=== PATIENT | male | born 1965 | race Caucasian/White ===

== ENCOUNTER → 2016-10-18 | Outpatient (CLI) | payer BC ==
[2016-10-18 13:38] LABS: Basophils # (A) 0.1 k/uL (0-0.2); Basophils % (A) 1 %; CHCM 33.7; Eosinophils # (A) 0.2 k/uL (0-0.7); Eosinophils % (A) 3 %; HCT 46.8 % (39.0-53.0); HDW 2.59; HGB 15.5 gm/dL (13.0-17.5); Luc # (Auto) 0.12; Luc % (Auto) 2; Lymphocytes # (A) 1.7 k/uL (1.0-4.8); Lymphocytes % (A) 30 %; MCH 30.7 pg (25.0-35.0); MCHC 33.2 g/dL (31.0-37.0); MCV 92.5 fL (80.0-100.0); Mean Platelet Volume 8.9; Monocytes # (A) 0.3 k/uL (0-1.0); Monocytes % (A) 6 %; Neutrophils # (A) 3.3 k/uL (1.3-7.7); Neutrophils % (A) 58 %; RBC 5.06 m/uL (4.30-5.90); RDW 13.1 % (11.5-15.5); WBC 5.7 k/uL (3.8-10.6); WBC (Perox) 5.52
[2016-10-18 14:31] LABS: ALT 42 U/L (21-72); AST 27 U/L (17-59); Blood Urea Nitrogen 13 mg/dL (9-20); Non-African American GFR(MDRD) >60 (>60 ml/min/1.73 sqM)
--- NOTE | 2016-10-18 20:25 | XR ---
EXAMINATION TYPE: XR chest 2V DATE OF EXAM: 10/18/2016 1:04 PM COMPARISON: 10/16/2015 HISTORY: 51-year-old male psoriasis vulgaris TECHNIQUE: Frontal and lateral views FINDINGS: Low lung volumes accentuating heart size which is within normal limits. Aorta and pulmonary vasculatu re within normal limits. Mild interstitial prominence is unchanged and chronic. No consolidation or p leural effusion. IMPRESSION: Some low lung volumes and chronic changes, possible chronic bronchitis/asthma. No acute process seen.
== END | disposition home or self-care (01) ==
LOC: LABWHC1 12:28
PROVIDERS: ATTEND Physician Assistant Medical
DX: L40.0 Psoriasis vulgaris (principal)
CPT/HCPCS: 36415; 71020; 82565; 84450; 84460; 84520; 85025

== ENCOUNTER → 2017-08-03 | Outpatient (CLI) | payer BC ==
[2017-08-03 19:13] LABS: Basophils % (A) 1 %; Eosinophils # (A) 0.1 k/uL (0-0.7); Eosinophils % (A) 3 %; HCT 45.4 % (39.0-53.0); HGB 15.2 gm/dL (13.0-17.5); Lymphocytes # (A) 1.9 k/uL (1.0-4.8); Lymphocytes % (A) 37 %; MCH 30.3 pg (25.0-35.0); MCHC 33.5 g/dL (31.0-37.0); MCV 90.4 fL (80.0-100.0); Mean Platelet Volume 9.7; Monocytes # (A) 0.4 k/uL (0-1.0); Monocytes % (A) 8 %; Neutrophils # (A) 2.5 k/uL (1.3-7.7); Neutrophils % (A) 49 %; Platelet Count 109 k/uL (150-450); RBC 5.02 m/uL (4.30-5.90)
[2017-08-03 19:38] LABS: ALT 38 U/L (21-72); AST 23 U/L (17-59); Albumin 4.2 g/dL (3.5-5.0); Alkaline Phosphatase 64 U/L (38-126); Bilirubin, Delta 0.2 mg/dL (0.0-0.2); Bilirubin,Unconjugated 0.7 mg/dL (0.0-1.1); Total Bilirubin 0.9 mg/dL (0.2-1.3)
== END | disposition home or self-care (01) ==
LOC: LABMAIN 18:34
PROVIDERS: ATTEND Nurse Practitioner Family
DX: L40.0 Psoriasis vulgaris (principal)
CPT/HCPCS: 36415; 80076; 82565; 85025; 86480

== ENCOUNTER → 2018-08-06 | Outpatient (CLI) | payer BC ==
[2018-08-06 17:22] LABS: Basophils % (A) 1 %; Eosinophils # (A) 0.1 k/uL (0-0.7); Eosinophils % (A) 2 %; HCT 46.5 % (39.0-53.0); HGB 15.8 gm/dL (13.0-17.5); Lymphocytes # (A) 1.7 k/uL (1.0-4.8); Lymphocytes % (A) 28 %; MCH 30.5 pg (25.0-35.0); MCV 89.7 fL (80.0-100.0); Mean Platelet Volume 8.7; Monocytes # (A) 0.3 k/uL (0-1.0); Monocytes % (A) 5 %; Neutrophils # (A) 3.8 k/uL (1.3-7.7); Neutrophils % (A) 62 %; Platelet Count 130 k/uL (150-450); RBC 5.18 m/uL (4.30-5.90); RDW 12.8 % (11.5-15.5)
== END | disposition home or self-care (01) ==
LOC: LABWHC1 16:53
PROVIDERS: ATTEND Physician Assistant Medical
DX: L40.0 Psoriasis vulgaris (principal)
CPT/HCPCS: 36415; 82565; 84450; 84460; 85025; 86480

== ENCOUNTER → 2021-04-09 | Outpatient (CLI) | payer BC ==
[2021-04-09 23:20] LABS: Basophils # (A) 0.05 X 10*3/uL (0.00-0.10); Basophils % (A) 0.9 %; Eosinophils # (A) 0.09 X 10*3/uL (0.04-0.35); Eosinophils % (A) 1.7 %; HCT 48.4 % (39.6-50.0); HGB 16.2 g/dL (13.0-17.0); Lymphocytes # (A) 1.67 X 10*3/uL (0.90-5.00); Lymphocytes % (A) 31.2 %; MCH 30.6 pg (27.0-32.0); MCHC 33.5 g/dL (32.0-37.0); MCV 91.3 fL (80.0-97.0); Mean Platelet Volume 13.2 fL (9.5-12.2); Monocytes # (A) 0.26 X 10*3/uL (0.20-1.00); Monocytes % (A) 4.9 %; Neutrophils # (A) 3.28 X 10*3/uL (1.80-7.70); Neutrophils % (A) 61.1 %; Platelet Count 131 X 10*3/uL (140-440); RDW 12.3 % (11.5-14.5); WBC 5.36 X 10*3/uL (4.50-10.00)
[2021-04-10 05:56] LABS: African American GFR (CKD) 98.5 (60.0-200.0); Non-African American GFR(CKD) 84.9 (60.0-200.0)
== END | disposition home or self-care (01) ==
LOC: LABWHC1 13:12
PROVIDERS: ATTEND Dermatology MOHS-Micrographic Surgery
DX: L40.0 Psoriasis vulgaris (principal)
CPT/HCPCS: 36415; 82565; 84450; 84460; 85025; 86480

== ENCOUNTER 2021-05-23 07:26 | Day surgery (SDC) | payer BC ==
[2021-05-20 12:52] VITALS: BMI 36.9
--- NOTE | 2021-05-23 06:32 | P.GSHP ---
History of Present Illness H&P Date: 05/23/21 CHIEF COMPLAINT: Colon screen HISTORY OF PRESENT ILLNESS: The patient is a 56-year-old male who presents for colon screen. Lower endoscopy was offered for further evaluation and management. PAST MEDICAL HISTORY: Please see list. PAST SURGICAL HISTORY: Please see list. MEDICATIONS: Please see list. ALLERGIES: Please see list. SOCIAL HISTORY: No illicit drug use FAMILY HISTORY: No reports of Crohn disease or ulcerative colitis. REVIEW OF ORGAN SYSTEMS: CONSTITUTIONAL: No reports of fevers or chills. PHYSICAL EXAM: VITAL SIGNS: Stable GENERAL: Well-developed pleasant in no acute distress. HEENT: No scleral icterus. Extraocular movements grossly intact. Moist buccal mucosa. NECK: Supple without lymphadenopathy. CHEST: Unlabored respirations. Equal bilateral excursions. CARDIOVASCULAR: Regular rate and rhythm. Distal 2+ pulses. ABDOMEN: Soft, nontender, nondistended. MUSCULOSKELETAL: No clubbing, cyanosis, or edema. ASSESSMENT: 1. Colon screen. PLAN: 1. Recommend proceeding with a lower endoscopy Past Medical History Past Medical History: Cancer Additional Past Medical History / Comment(s): LOW HEART RATE AT TIMES , MELENOMA, PSORIATIC ARTHRITIS, History of Any Multi-Drug Resistant Organisms: None Reported Additional Past Surgical History / Comment(s): RIGHT LEG FOR RUPTURED TENDON IN QUAD, BIOPSY OF RIGHT RING FINGER KNUKLE, SKIN LESION REMOVED WITH LYMPH NODE BIOPSY Past Anesthesia/Blood Transfusion Reactions: No Reported Reaction Smoking Status: Never smoker - Past Family History Mother Family Medical History: Cancer Medications and Allergies Home Medications Medication Instructions Recorded Confirmed Type Ustekinumab [Stelara] 90 mg INJ DIRECTED 05/20/21 05/20/21 History Allergies Allergy/AdvReac Type Severity Reaction Status Date / Time erythromycin base Allergy Rash/Hives Verified 05/20/21 12:32
[~2021-05-23 07:26] MED LIST: LACTATED RINGERS 1,000 ML IV SCH
[2021-05-23] MEDS ORDERED: PROPOFOL 10 MG/ML 20 ML VIAL IV ONE (07:48)
[2021-05-23] MEDS ORDERED: LIDOCAINE 1% INJ 10MG/ML (20 ML MDV) ONE (07:48)
[2021-05-23 07:57] VITALS: RESP 16; TEMP 97.3
[2021-05-23] MEDS ORDERED: LIDOCAINE 1% (10MG/ML) FOR IV START INTRADERMA ONE (08:03)
--- NOTE | 2021-05-23 09:17 | P.PCN ---
Date of Procedure: 05/23/21 Description of Procedure: PREOPERATIVE DIAGNOSIS: Colonoscopy screening POSTOPERATIVE DIAGNOSIS: Colonoscopy screening Tubular adenoma sigmoid colon OPERATION: Colonoscopy to the ileocecal valve and appendiceal orifice, cecum Colonoscopy with hot snare polypectomy SURGEON: Kathi Hernadez MD. ANESTHESIA: MAC. INDICATIONS: The patient is an 56-year-old male who presents for his first colonoscopic screening. Benefits and risks were described and informed consent was obtained. DESCRIPTION OF PROCEDURE: The patient had undergone Sutab prep. The patient had been brought into the operating room and laid in the left lateral decubitus position. After adequate intravenous sedation, the rectum was examined with 2% lidocaine jelly. The prostate was unremarkable. No external hemorrhoids were encountered. The rectal tone was within normal limits. No lesions were palpated in the rectal vault. An Olympus colonoscope was advanced until the cecum, ileocecal valve and appendiceal orifice were clearly viewed. The prep was excellent. No sigmoid diverticulosis was encountered. Colonic polyps were found and removed. No evidence of focal colitis was found. Retroflexion of the scope demonstrated grade 1 internal hemorrhoids without active bleeding or inflammation. The colon was desufflated. The patient had tolerated the procedure well. Withdrawal time was over 6 minutes. FINDINGS: Aronchick preparation quality scale 1 (1-5) Internal hemorrhoids, grade 1 No external hemorrhoids. No arteriovenous malformations. Sigmoid diverticulosis Removal of 1 polyps: - Snare polypectomy 25 cm from the anal verge, 5 mm tubulovillous adenoma polyp. No focal colitis. RECOMMENDATIONS: Repeat colonoscopy in 2025 Plan - Discharge Summary Discharge Rx Participant: No New Discharge Prescriptions: Continue Ustekinumab [Stelara] 90 mg INJ DIRECTED Discharge Medication List Ustekinumab [Stelara] 90 mg INJ DIRECTED 05/20/21 [History] Follow up Appointment(s)/Referral(s): Kathi Hernadez MD [STAFF PHYSICIAN] - As Needed Patient Instructions/Handouts: Colorectal Polyps (IP) Activity/Diet/Wound Care/Special Instructions: Repeat colonoscopy in 5 years2025 Discharge Disposition: HOME SELF-CARE
[2021-05-23 09:30] VITALS: BP 165/76; PULSE 52
== END 2021-05-23 09:51 | disposition home or self-care (01) ==
LOC: ORWHC2ENDO 07:26
PROVIDERS: ATTEND Surgery Plastic and Reconstructive Surgery
DX: Z12.11 Encounter for screening for malignant neoplasm of colon (principal); K63.5 Polyp of colon; L40.50 Arthropathic psoriasis, unspecified; Z85.820 Personal history of malignant melanoma of skin; Z79.899 Other long term (current) drug therapy; Z88.1 Allergy status to other antibiotic agents
CPT/HCPCS: 88305; 45385; J2001; J2704

== ENCOUNTER → 2021-06-19 | Outpatient (CLI) | payer BC ==
[~2021-06-19] MED LIST changes: +BAMLANIVIMAB (EUA) 700 MG, ETESEVIMAB (EUA) 1,400 MG in SODIUM CHLORIDE 0.9% 100 ML IVPB NR; -LACTATED RINGERS 1,000 ML IV SCH; +SODIUM CHLORIDE 0.9% 50 ML IVPB NR; +SODIUM CHLORIDE 0.9% 500 ML 500 ML in EMPTY BAG 1 BAG IV PRN
[2021-06-19 08:42] VITALS: RESP 16; TEMP 98
[2021-06-19 10:05] VITALS: BP 141/69; PULSE 41
== END ==
LOC: PROCWHC3 07:56
PROVIDERS: ATTEND Family Medicine
DX: U07.1 COVID-19 (principal); E66.9 Obesity, unspecified; Z68.37 Body mass index [BMI] 37.0-37.9, adult; Z88.1 Allergy status to other antibiotic agents
CPT/HCPCS: 96360; J3490; M0245

== ENCOUNTER → 2022-02-04 | Outpatient (CLI) | payer BC ==
--- NOTE | 2022-02-04 14:49 | NM ---
EXAMINATION TYPE: NM bone scan whole body DATE OF EXAM: 02/04/2022 COMPARISON: NONE HISTORY: C61 Prostate ca Delayed whole-body scanning was performed following the injection of 23.5 mCi Tc 99m MDP. Images acq uired 5.5 hours post injection. FINDINGS: There is no evidence for intense radiotracer accumulation at this time to suggest metastatic disease. There is degenerative uptake about the shoulders, sternoclavicular joints, mid to lower thoracic spi ne, bilateral knees, bilateral ankles, mid feet and right great toe. IMPRESSION: No scintigraphic evidence to suggest metastatic disease at this time.
--- NOTE | 2022-02-04 16:31 | CT ---
EXAMINATION TYPE: CT abdomen pelvis wo/w con CT DLP: 3489.20 mGycm, Automated exposure control for dose reduction was used. DATE OF EXAM: 02/04/2022 9:29 AM COMPARISON: Nuclear medicine bone scan same day. CLINICAL INDICATION:Male, 56 years old with history of C61 Prostate CA; newly diagnosed prostate CA. TECHNIQUE: Axial CT of the abdomen and pelvis. Sagittal and coronal reformats were created on a [employer] workstation. Contrast used:100 mL of Isovue 300 with IV Contrast, Oral contrast used: with Oral Contrast FINDINGS: LOWER CHEST: The heart is mildly enlarged for size. ABDOMEN LIVER: Diffusely hypoattenuating parenchyma. GALLBLADDER AND BILE DUCTS: Unremarkable. PANCREAS: Unremarkable. SPLEEN: Small splenule is present. ADRENAL GLANDS: Unremarkable. KIDNEYS AND URETERS: No evidence of hydronephrosis or renal calculus. The ureters are unremarkable. PELVIS BLADDER: Unremarkable REPRODUCTIVE: The prostate gland is not enlarged for size. ABDOMEN & PELVIS STOMACH AND BOWEL: No evidence of bowel obstruction. PERITONEUM: No evidence of pneumoperitoneum or free fluid. VASCULATURE: No evidence of aortic aneurysm. MUSCULOSKELETAL: No acute osseous abnormalities. Mild disc degeneration changes are present throughou t the thoracolumbar spine. LYMPH NODES: No gross evidence for lymphadenopathy. SOFT TISSUE/ABDOMINAL WALL: Small fat filled umbilical hernia IMPRESSION: 1. No evidence for lymphadenopathy or suspicious osseous lesion.
== END | disposition home or self-care (01) ==
LOC: RADNMMAIN 07:02
PROVIDERS: ATTEND Urology
DX: C61 Malignant neoplasm of prostate (principal)
CPT/HCPCS: 74178; 36415; 78306; A9503; Q9967

== ENCOUNTER → 2022-03-17 | Outpatient (CLI) | payer BC ==
[2022-03-17 19:26] LABS: African American GFR (CKD) 87.1 (60.0-200.0); Anion Gap 7.7 mmol/L (10.00-18.00); BUN/Creat Ratio 13.82 Ratio (12.00-20.00); Blood Urea Nitrogen 15.2 mg/dL (9.0-27.0); Calcium 8.6 mg/dL (8.7-10.3); Carbon Dioxide 27.3 mmol/L (20.0-27.5); Non-African American GFR(CKD) 75.2 (60.0-200.0); Potassium 4.3 mmol/L (3.5-5.5)
[2022-03-17 19:45] LABS: Basophils # (A) 0.04 X 10*3/uL (0.00-0.10); Basophils % (A) 0.7 %; Eosinophils % (A) 1.7 %; HGB 14.4 g/dL (13.0-17.0); Immature Grans, Automated 0.3 %; Lymphocytes # (A) 1.46 X 10*3/uL (0.90-5.00); Lymphocytes % (A) 24.9 %; MCH 30.5 pg (27.0-32.0); MCHC 34.3 g/dL (32.0-37.0); Mean Platelet Volume 12.8 fL (9.5-12.2); Monocytes # (A) 0.34 X 10*3/uL (0.20-1.00); Monocytes % (A) 5.8 %; NRBC Per 100 WBC 0 /100 WBCS (0.0-0.0); Neutrophils % (A) 66.6 %; Platelet Count 124 X 10*3/uL (140-440); RBC 4.72 X 10*6/uL (4.40-5.60); RDW 12.5 % (11.5-14.5); WBC 5.86 X 10*3/uL (4.50-10.00)
[2022-03-17 21:31] LABS: Hepatitis B Surface AB- Quant 53.3 mIU/mL; Hepatitis B Surface Antibody Reactive (Nonreactive)
[2022-03-17 21:46] LABS: Hepatitis B Surface Antigen Nonreactive (Nonreactive)
== END | disposition home or self-care (01) ==
LOC: LABWHC1 13:34
PROVIDERS: ATTEND Dermatology MOHS-Micrographic Surgery
DX: Z01.812 Encounter for preprocedural laboratory examination (principal); L40.0 Psoriasis vulgaris; Z85.820 Personal history of malignant melanoma of skin; R53.83 Other fatigue
CPT/HCPCS: 36415; 80048; 84450; 84460; 85025; 86480; 86704; 86706; 87340; 93005

== ENCOUNTER → 2022-03-19 | Outpatient (CLI) | payer BC ==
--- NOTE | 2022-03-20 07:11 | MR ---
EXAMINATION TYPE: MR Prostate wo/w con DATE OF EXAM: 03/19/2022 COMPARISON: CT abdomen and pelvis February 04, 2022 IMAGE QUALITY: Good. INDICATION: PROSTATE CA PSA: 4.6 ng/ml on May 23, 2021 and 3.8 on May 21, 2021 Recent Biopsy and Date: January 16, 2022 Pathology Report (If Applicable): Right lateral base adenocarcinoma Alexey grade 3+3 = 6 involving 4 0% of tissue 3 mm in length, right base adenocarcinoma Alexey grade 3+3 = 6 approximately 70% tissue measuring 5.5 mm length. Right lateral mid adenocarcinoma Latexo grade 3+3 = 6 50% of tissue measur ing 4 mm in length. Right mid adenocarcinoma Alexey grade 3+3 = 6 approximately 90% of tissue measur ing 7 mm in length. Right lateral apex adenocarcinoma Latexo grade 3+3 = 6 approximately 70% of tiss ue measuring 6 mm in length. Right apex adenocarcinoma Alexey grade 3+3 = 6 approximately 40% of tis aren measuring 2 mm in length. Left lateral base adenocarcinoma Latexo grade 3+3 = 6 approximately 40% of tissue measuring 4 mm in length. Left base adenocarcinoma Latexo grade 3+4 = 7 approximately 80% of tissue measuring 7 mm in length. Left mid core biopsy adenocarcinoma Alexey grade 3+4 = 7 approximately 30% of tissue measuri ng 3 mm in length. TECHNIQUE: Examination was performed using a 3T MRI without an endorectal coil. Multiparametric imaging was perf ormed with T2 mutliplanar sequences, axial diffusion weighted imaging and dynamic contrast enhanced i maging, utilizing 12 mL intravenous Gadavist gadolinium contrast. FINDINGS: PROSTATE VOLUME: 3.4 cm SI x 3.0 cm AP x 4.3 cm LR Vol= 22.97 cc PSA DENSITY: 0.20 ng/ml/cc Predicted PSA equals 2.76 Prostate gland measures normal in size. There is thinning of the peripheral zone. Central zone is het erogeneous in appearance without areas of suspicious diminished T2 signal. No increased signal on dif fusion-weighted imaging. Prostate capsule is maintained. Seminal vesicles appear within normal limits . Urinary bladder appears unremarkable. No pelvic adenopathy. No concerning pelvic fluid collection. Vi sualized osseous structures are intact. IMPRESSION: A focus of clinically significant cancer is not identified. Highest Assessment Category: 1 MRI Stage: T 1c N0 M0 based on review of pelvic images. False negative rates for MRI range from 5-20% depending on risk profile. Assessment Categories: 1 ? Very low (clinically significant cancer is highly unlikely to be present) 2 ? Low (clinically significant cancer is unlikely to be present) 3 ? Intermediate (the presence of clinically significant cancer is equivocal) 4 ? High (clinically significant cancer is likely to be present) 5 ? Very high (clinically significant cancer is highly likely to be present)
== END | disposition home or self-care (01) ==
LOC: RADMRIMAIN 05:51
PROVIDERS: ATTEND Urology
DX: C61 Malignant neoplasm of prostate (principal)
CPT/HCPCS: 72197; A9585

== ENCOUNTER 2022-03-26 09:40 | Day surgery (SDC) | payer BC ==
[~2022-03-26 09:40] MED LIST changes: -BAMLANIVIMAB (EUA) 700 MG, ETESEVIMAB (EUA) 1,400 MG in SODIUM CHLORIDE 0.9% 100 ML IVPB NR; +HEPARIN SODIUM,PORCINE/PF 5,000 UNIT/0.5 ML SYRINGE SQ PRN; -SODIUM CHLORIDE 0.9% 50 ML IVPB NR; -SODIUM CHLORIDE 0.9% 500 ML 500 ML in EMPTY BAG 1 BAG IV PRN
[2022-03-26] MEDS ORDERED: LACTATED RINGERS 1,000 ML IV ONE ×3 (10:43→15:30)
[2022-03-26] MEDS ORDERED: BUPIVACAINE (PF) 0.25% 30 ML VIAL SQ ONE ×3 (10:49→15:30)
[2022-03-26] MEDS ORDERED: ONDANSETRON 4 MG/2 ML VIAL IVP ONE (10:50)
[2022-03-26] MEDS ORDERED: DEXAMETHASONE SOD PHOSPHATE 4 MG/ML 1 ML VIAL IV ONE (10:50)
[2022-03-26] MEDS ORDERED: fentaNYL (PF) 50 MCG/ML 2 ML AMP IV ONE ×2 (10:50→10:59)
[2022-03-26] MEDS ORDERED: MIDAZOLAM 2 MG/2 ML VIAL IV ONE (10:59)
[2022-03-26] MEDS ORDERED: PROPOFOL 10 MG/ML 20 ML VIAL IV ONE (11:35)
[2022-03-26] MEDS ORDERED: HYDROmorphone (PF) 1 MG/ML ONE (11:35)
[2022-03-26] MEDS ORDERED: fentaNYL (PF) 50 MCG/ML 2 ML AMP ONE (11:35)
[2022-03-26] MEDS ORDERED: LIDOCAINE 2% INJ 20 MG/ML (2 ML VIAL) ONE (11:35)
[2022-03-26] MEDS ORDERED: NEOSTIGMINE 1 MG/ML 10 ML VIAL ONE (11:35)
[2022-03-26] MEDS ORDERED: ROCURONIUM 10 MG/ML (5 ML VIAL) IV ONE (11:35)
[2022-03-26] MEDS ORDERED: SUCCINYLCHOLINE CHLORIDE 200 MG/10 ML VIAL IV ONE (11:35)
[2022-03-26] MEDS ORDERED: ROPIVACAINE 5 MG/ML 30 ML VIAL ONE (11:35)
[2022-03-26] MEDS ORDERED: ePHEDrine 50 MG/ML 1 ML VIAL ONE (11:35)
[2022-03-26] MEDS ORDERED: MIDAZOLAM 2 MG/2 ML VIAL ONE (11:35)
[2022-03-26] MEDS ORDERED: SODIUM CHLORIDE 0.9% (PF) 10 ML VIAL ONE (11:35)
[2022-03-26] MEDS ORDERED: GLYCOPYRROLATE 0.2 MG/ML 2 ML VIAL ONE (11:35)
--- NOTE | 2022-03-26 11:51 | P.ANPRN ---
Procedure Note - Anesthesia - Nerve Block Performed Bilateral Erector Spinae Single Time Out Performed: Yes Date of Procedure: 03/26/22 Procedure Start Time: 10:58 Procedure Stop Time: 11:05 Location of Patient: PreOp Indication: Requested by Surgeon Specifically requested for management of pain by DrAzar: Tyler Esparza Sedation Type: Sedate with meaningful contact maintained Preparation: Sterile Prep Position: Prone Needle Types: Pajunk Needle Gauge: 21 Ultrasound used to visualize needle placement: Yes Ultrasound used to observe medication spread: Yes Injectate: 0.5% Ropivacaine (see comment for volume) (15 ml per side plus 15 ml PF NS) Blood Aspirated: No Pain Paresthesia on Injection Noted: No Resistance on Injection: Normal Image Stored and Saved: Yes Events: Uneventful and Well Tolerated
[2022-03-26] MEDS ORDERED: ACETAMINOPHEN TAB 325 MG TAB PO PRN (15:45)
[2022-03-26] MEDS ORDERED: KETOROLAC 15 MG/ML 1 ML VIAL IVP PRN (15:45)
[2022-03-26] MEDS ORDERED: HYDROmorphone 1 MG/ML 1 ML SYRINGE IVP PRN (15:45)
[2022-03-26] MEDS ORDERED: ONDANSETRON 4 MG/2 ML VIAL IVP PRN (15:45)
[2022-03-26] MEDS ORDERED: HYDROcodone/APAP 5-325MG 1 EACH TAB PO PRN ×2 (15:47)
--- NOTE | 2022-03-26 15:48 | P.OP ---
Date of Procedure: 03/26/22 Preoperative Diagnosis: Adenocarcinoma the Prostate, clinical stage [id number] Postoperative Diagnosis: Same Procedure(s) Performed: Robotic-assisted laparoscopic prostatectomy (RALP) with bilateral pelvic lymphadenectomy Anesthesia: JUAN Surgeon: Tyler Esparza Estimated Blood Loss (ml): 150 IV fluids (ml): 1,300 Pathology: other (Prostate, seminal vesicles, bilateral pelvic lymph nodes) Condition: stable Disposition: PACU Indications for Procedure: The patient is a 56-year-old white male who underwent evaluation for an elevated PSA level (4.6). NYA revealed a right-sided prostate nodule. Prostate ultrasound revealed a prostate volume of 18.7 cc. 6 of 6 right-sided biopsies revealed Alexey 6 adenocarcinoma. 3 of 6 left-sided biopsies revealed Alexey 6/7 (3+4) adenocarcinoma. His metastatic evaluation consisted of a CT scan and bone scan, both of which were negative. A prostate MRI was obtained, showing no significant lesions. Alternative treatment options were reviewed in detail with the patient (IMRT vs surgery), including the pros, cons, and risks of each. He has elected to undergo surgery. He is potent and relatively free of voiding symptoms. Operative Findings: No evidence of extraprostatic disease. Description of Procedure: The patient was taken in the operating room and placed in the supine position. He was carefully positioned on a beanbag for stability. The abdomen and external genitalia were prepped and draped sterilely. A Green catheter was inserted. The Veress needle was passed through the anterior abdominal wall immediately cephalad to the umbilicus, and insufflation was performed to a pressure of 20 mm Hg. Once insufflation was performed, the Veress needle was removed and a supraumbilical incision was made, through which an 8 mm camera por t was placed. Under camera guidance, 3 8 mm robotic ports were placed, 2 on the left and one on the right. A 12 mm port was placed on the right lateral side for use as an assistant manager of operations port. A 5 mm port was placed to the right of the camera port for suction. The patient was placed in Trendelenburg position, and docking was then performed to the da Josseline system utilizing a 4-arm approach. The abdomen was examined. The sigmoid colon was mobilized out of the pelvis. The peritoneum was incised lateral to the medial umbilical ligaments bilaterally, exposing the pubis. The peritoneum was then incised across the midline, allowing the bladder flap to be taken down. The endopelvic fascia was opened bilaterally, and muscular attachments from the urogenital diaphragm were swept away from the prostate. Bilateral pelvic lymphadenectomies were performed in the standard fashion. The peritoneal incisions were extended in a cephalad direction, and the vas deferens were divided bilaterally. Margins of dissection were the bifurcation of the iliac vessels proximally, the circumflex iliac vein distally, the external iliac artery laterally, and the obturator nerve medially. A combination of sharp and blunt dissection was used. Care was taken to avoid any neurovascular injury, and the use of monopolar electrocautery was avoided immediately adjacent to neurovascular structures. The lymphatic package was clipped distally. No enlarged lymph nodes were encountered. There were no complications. The vesical neck was incised transversely, down to the lumen. The Green catheter was brought out through the anterior vesical neck incision and was used for traction. The posterior aspect of the vesical neck was incised, such that the full-thickness of the vesical neck was divided. The anterior layer of the Denonvilliers fascia was incised, exposing the vas deferens. Each were isolated and divided. Next, each of the seminal vesicles were dissected away from adjacent tissues, and vascular attachments were cauterized and divided. The posterior leaf of Denonvilliers fascia was incised transversely, allowing entry into the plane between the prostate and rectum. With lateral spreading, this plane was developed down to the apex. This exposed the lateral vascular pedicles bilaterally. These were clipped and divided in an antegrade fashion, down to the apex. The use of electrocautery was avoided on the left side to prevent thermal damage to the nerves. The right neurovascular bundle was not preserved, as the plane of dissection was away from the prostate. The left neurovascular bundle was preserved. The remaining apical attachments were swept away from the prostate. The dorsal venous complex was incised, as well as periurethral tissue. At this point, only the urethra remained intact. This was transected immediately distal to the prostatic apex using cold scissors. The specimen was placed within a specimen bag. The dorsal venous complex was sutured using a V-Loc suture in a running fashion. A second V-Loc suture was then used to place the Bertrand stitch, incorporating the rhabdosphincter and the edge of Denonvilliers fascia. This allowed the bladder to be taken down to the urethra, leaving the vesical neck immediately adjacent to the urethra. The vesicourethral anastomosis was then performed using a V-Loc suture in a running fashion. After completing the anastomosis, an 18-Bulgarian Green catheter was placed and approximately 150 mL of 0.9 normal saline were instilled into the bladder. No extravasation of irrigant from the vesicourethral anastomosis was noted. A small amount of oozing was noted from the vascular pedicles, so Surgicel was placed bilaterally. Tisseel was sprayed into the pelvis over the vascular pedicles, dorsal vein, and vesicourethral anastomosis. The patient was returned to the supine position. Undocking was performed, and the specimen bag sutures were passed through the camera port. After removing all the ports and allowing all of the CO2 to be released from the peritoneal cavity, the camera port incision was enlarged to allow removal of the surgical specimen. The fascia of this incision was then closed using 0 PDS suture in a running fashion. Each of the skin incisions were then closed using 4-0 Monocryl suture in a subcuticular fashion. Marcaine was injected at each of the incision sites. Dermabond was applied to each incision. The Green catheter was connected to gravity drainage. All sponge and needle counts were correct. The patient tolerated the procedure well was taken to the recovery room in stable condition.
[2022-03-26] MEDS ORDERED: KETOROLAC 15 MG/ML 1 ML VIAL IVP ONE (16:20)
[2022-03-26] MEDS ORDERED: HYDROmorphone 0.5 MG/0.5 ML SYRINGE IVP ONE ×2 (16:25→16:48)
[2022-03-26 16:36] VITALS: RESP 16
[2022-03-26] MEDS: DEXTROSE 5%-0.45% NACL 1,000 ML IV SCH (17:36)
[2022-03-26] MEDS ORDERED: hydrALAZINE HCL 20 MG/ML 1 ML VIAL IVP STA (19:01)
[2022-03-26] MEDS: HEPARIN SODIUM,PORCINE/PF 5,000 UNIT/0.5 ML SYRINGE SQ SCH (20:11)
[2022-03-27] MEDS: DEXTROSE 5%-0.45% NACL 1,000 ML IV SCH ×2 (01:45→09:23)
[2022-03-27 05:23] VITALS: BP 131/66; PULSE 51; TEMP 99.6
[2022-03-27] MEDS: HEPARIN SODIUM,PORCINE/PF 5,000 UNIT/0.5 ML SYRINGE SQ SCH (09:20)
--- NOTE | 2022-03-27 11:45 | P.CON ---
Consult Note - . Consult date: 03/27/22 Assessment/Plan:: Reason for consultation; postoperative hypertension History of present illness; Patient is a 56-year-old white male who was being worked up outpatient for elevated PSA level (4.6). NYA revealed a right-sided prostate nodule. Prostate ultrasound revealed a prostate volume of 18.7 cc. 6 of 6 right-sided biopsies revealed Standish [address] scan and bone scan, both were negative. A prostate MRI was obtained, showing no significant lesions. Patient discussed with urology regarding treatment options and opted for surgery. Patient was scheduled for Robotic-assisted laparoscopic prostatectomy (RALP) with bilateral pelvic lymphadenectomy. REVIEW OF SYSTEMS: CONSTITUTIONAL: No fever, no malaise, no fatigue. HEENT: No recent visual problems or hearing problems. Denied any sore throat. CARDIOVASCULAR: No chest pain, orthopnea, PND, no palpitations, no syncope. PULMONARY: No shortness of breath, no cough, no hemoptysis. GASTROINTESTINAL: No diarrhea, no nausea, no vomiting, no abdominal pain. NEUROLOGICAL: No headaches, no weakness, no numbness. HEMATOLOGICAL: Denies any bleeding or petechiae. GENITOURINARY: No hematuria. Currently has a Green catheter MUSCULOSKELETAL/RHEUMATOLOGICAL: Denies any joint pain, swelling, or any muscle pain. ENDOCRINE: Denies any polyuria or polydipsia. The rest of the 14-point review of systems is negative. PHYSICAL EXAMINATION: GENERAL: The patient is alert and oriented x3, not in any acute distress. Well developed, well nourished. HEENT: Pupils are round and equally reacting to light. EOMI. No scleral icterus. No conjunctival pallor. Normocephalic, atraumatic. No pharyngeal erythema. No thyromegaly. CARDIOVASCULAR: S1 and S2 present. No murmurs, rubs, or gallops. PULMONARY: Chest is clear to auscultation, no wheezing or crackles. ABDOMEN: Soft, nontender, nondistended, normoactive bowel sounds. No palpable organomegaly. Laparoscopic surgical incision seen MUSCULOSKELETAL: No joint swelling or deformity. EXTREMITIES: No cyanosis, clubbing, or pedal edema. NEUROLOGICAL: Gross neurological examination did not reveal any focal deficits. SKIN: No rashes. Assessment Malignant neoplasm of prostate Status post Robotic-assisted laparoscopic prostatectomy (RALP) with bilateral pelvic lymphadenectomy. Elevated blood pressure readings Plan; Continue postop management per urology Continue pain management per urology Patient has a couple of elevated blood pressure readings which could be secondary to pain. Latest blood pressure reading was 131/66. Discussed with patient in detail regarding his home blood pressure readings and they continued to be in the range of 130s. At this time we do not suggest starting patient on any blood pressure medications DVT prophylaxis: SCDs
--- NOTE | 2022-03-27 12:15 | P.DS ---
Providers Expected date of discharge: 03/27/22 Attending physician: Tyler Esparza Consults: 03/26/22 19:02 Consult Physician Routine Consulting Provider: Sly White Consult Reason/Comments: hypertension post op Do you want consulting provider notified?: Yes Primary care physician: Frank Golden - Discharge Diagnosis(es) (1) Malignant neoplasm of prostate Current Visit: No Status: Acute Hospital Course: On the day of admission, the patient underwent an uncomplicated robotic-assisted laparoscopic prostatectomy with bilateral pelvic lymphadenectomy. Perioperative course was uncomplicated. He remained afebrile with stable vital signs, other than bradycardia which was noted preoperatively. On the first postoperative da y, he tolerated liquids and denied nausea and vomiting. He was ambulating without difficulty. He reported incisional discomfort as expected. On examination, the abdomen was soft and nondistended. The incisions were clean and dry. The Green catheter was draining clear yellow urine. Procedures: RALP with bilateral pelvic lymphadenectomy on 03/26/2022. Patient Condition at Discharge: Good Plan - Discharge Summary Discharge Rx Participant: No New Discharge Prescriptions: New Ketorolac [Toradol] 10 mg PO Q6HR PRN #12 tab PRN Reason: Pain Ciprofloxacin HCl [Cipro] 250 mg PO Q12HR #6 tablet No Action Ustekinumab [Stelara] 90 mg INJ DIRECTED Discharge Medication List Ustekinumab [Stelara] 90 mg INJ DIRECTED 05/20/21 [History] Ciprofloxacin HCl [Cipro] 250 mg PO Q12HR #6 tablet 03/27/22 [Rx] Ketorolac [Toradol] 10 mg PO Q6HR PRN #12 tab 03/27/22 [Rx] Follow up Appointment(s)/Referral(s): Te Street MD [STAFF PHYSICIAN] - 04/07/22 Activity/Diet/Wound Care/Special Instructions: Discharge home with Green catheter. Instruct patient to use overnight drainage bag as well as urinary leg bag. Okay to shower. Diet as tolerated. No lifting or strenuous activity for 6 weeks. No driving for 1 week. Reassure patient that abdominal wall ecchymosis and penoscrotal swelling are normal. Instruct patient to begin taking antibiotics one day prior to Green catheter removal. Discharge Disposition: HOME SELF-CARE
== END 2022-03-27 14:39 | disposition home or self-care (01) ==
LOC: OR 09:40 → 5NMEDONC 15:50 → OR 03-27 14:39
PROVIDERS: ATTEND Urology
DX: C61 Malignant neoplasm of prostate (principal); G89.18 Other acute postprocedural pain
CPT/HCPCS: 64999; 86900; 86901; 86850; 55866; 38571; C1762; J2250; J0360; J1100; J0690 ×3; J2405; J3010; J1885; J1170; J1644 ×2; 88307; 88309

== ENCOUNTER → 2022-11-24 | Outpatient (CLI) | payer BC | END | disposition home or self-care (01) | LOC: LABWHC1 07:21 | PROVIDERS: ATTEND Urology | DX: C61 Malignant neoplasm of prostate (principal) | CPT/HCPCS: 36415; 84153 ==

== ENCOUNTER 2023-02-22 19:50 | Emergency (ER) | payer BC ==
[2023-02-22 20:06] VITALS: RESP 20; TEMP 98.5
--- NOTE | 2023-02-22 21:27 | ED ---
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 The patient stated that around noon he started being able to urinate and has had worsening pain and discomfort. He spoke with his urologist who told him to come to the emergency department for a Green catheter placement. The patient denied any other acute pain at this time but was pacing throughout the room, diaphoretic secondary to discomfort. The patient denied any nausea or vomiting however. - Related Data Home Medications Medication Instructions Recorded Confirmed Ustekinumab [Stelara] 90 mg INJ DIRECTED 05/20/21 03/26/22 Previous Rx's Medication Instructions Recorded Ciprofloxacin HCl [Cipro] 250 mg PO Q12HR #6 tablet 03/27/22 Ketorolac [Toradol] 10 mg PO Q6HR PRN #12 tab 03/27/22 Allergies Allergy/AdvReac Type Severity Reaction Status Date / Time erythromycin base Allergy Rash/Hives Verified 02/22/23 20:06 Review of Systems ROS Statement: Those systems with pertinent positive or pertinent negative responses have been documented in the HPI. ROS Other: All systems not noted in ROS Statement are negative. Past Medical History Past Medical History: Cancer, Skin Disorder Additional Past Medical History / Comment(s): hx. slow heart rate, usually in 40's per pt., walks 5-8 miles daily, hx. melanoma 2012 on arm, PSORIATIC AR THRITIS, & psoriasis, new dx. prostate cancer History of Any Multi-Drug Resistant Organisms: None Reported Past Surgical History: Orthopedic Surgery, Prostate Surgery Additional Past Surgical History / Comment(s): RIGHT LEG FOR RUPTURED TENDON IN QUAD, BIOPSY OF RIGHT RING FINGER KNUCKLE, SKIN LESION REMOVED WITH LYMPH NODE BIOPSY left forearm Past Anesthesia/Blood Transfusion Reactions: No Reported Reaction Past Psychological History: No Psychological Hx Reported Smoking Status: Never smoker Past Alcohol Use History: Rare Past Drug Use History: None Reported - Past Family History Mother Family Medical History: Cancer General Exam Limitations: no limitations General appearance: alert, in distress (In distress, pacing in the room, diaphoretic secondary to abdominal discomfort and urinary retention) Head exam: Present: atraumatic, normocephalic, normal inspection Eye exam: Present: normal appearance, PERRL Pupils: Present: normal accommodation ENT exam: Present: normal exam, normal oropharynx, mucous membranes moist Neck exam: Present: normal inspection, full ROM Respiratory exam: Present: normal lung sounds bilaterally Cardiovascular Exam: Present: regular rate, normal rhythm, normal heart sounds GI/Abdominal exam: Present: tenderness (TTP over the suprapubic region) Extremities exam: Present: normal inspection, full ROM Back exam: Present: normal inspection, full ROM Neurological exam: Present: alert, oriented X3, CN II-XII intact Psychiatric exam: Present: normal affect, normal mood Skin exam: Present: warm, diaphoretic Course Vital Signs 02/22/23 02/22/23 20:03 21:42 Temperature 98.5 F Pulse Rate 66 67 Respiratory 20 20 Rate Blood Pressure 183/8 158/80 O2 Sat by Pulse 95 100 Oximetry Medical Decision Making - Medical Decision Making Was pt. sent in by a medical professional or institution (Dr. PA, AIR DEFENSE ARTILLERY OFFICER, urgent care, hospital, or [facility]...) When possible be specific @ -No Did you speak to anyone other than the patient for history (EMS, parent, family, police, friend...)? What history was obtained from this source @ -No Did you review nursing and triage notes (agree or disagree)? Why? @ -I reviewed and agree with nursing and triage notes Were old charts reviewed (outside hosp., previous admission, EMS record, old EKG, old radiological studies, urgent care reports/EKG's, [facility] records)? Report findings @ -No old charts were reviewed Differential Diagnosis (chest pain, altered mental status, abdominal pain women, abdominal pain men, vaginal bleeding, weakness, fever, dyspnea, syncope, headache, dizziness, GI bleed, back pain, seizure, CVA, palpatations, mental health)? @ -Acute urinary retention, urethral stricture, UTI EKG interpreted by me (3pts min.). @ -None X-rays interpreted by me (1pt min.). @ -None done CT interpreted by me (1pt min.). @ -None done U/S interpreted by me (1pt. min.). @ -None done What testing was considered but not performed or refused? (CT, X-rays, U/S, labs)? Why? @ -Urinalysis was considered however the patient had acute urinary retention secondary to, patient's her previous surgery therefore a urinalysis was not needed at this time. What meds were considered but not given or refused? Why? @ -None Did you discuss the management of the patient with other professionals (professionals i.e. Dr., PA, [employer] DEFENSE [employer] OFFICER, lab, RT, psych nurse, social worker aide, manager instrumentation, teacher, botanical technical officer, business case analyst)? Give summary @ -Yes, contacted the emergency department prior to the patient arrival as well as I spoke to him directly in the emergency department after he had completed the Green catheter placement for the patient. He did recommend that the patient follow-up with the specialist urologist next week as previously scheduled. Was smoking cessation discussed for >3mins.? @ -No Was critical care preformed (if so, how long)? @ -No Were there social determinants of health that impacted care today? How? (Homelessness, low income, unemployed, alcoholism, drug addiction, transportation, low edu. Level, literacy, decrease access to med. care, shelter, rehab)? @ -No Was there de-escalation of care discussed even if they declined (Discuss DNR or withdrawal of care, Hospice)? DNR status @ -No What co-morbidities impacted this encounter? (DM, HTN, Smoking, COPD, CAD, Cancer, CVA, ARF, Chemo, Hep., AIDS, mental health diagnosis, sleep apnea, morbid obesity)? @ -Radical prostatectomy with multiple urethral strictures Was patient admitted / discharged? Hospital course, mention meds given and route, prescriptions, significant lab abnormalities, going to OR and other pertinent info. @ -The patient was seen and evaluated emergency department. On evaluation, the patient was pacing throughout the room, diaphoretic with distress secondary to urinary retention. The patient was told to come to the emergency department by his urologist and did a bladder scan of 663. The urologist, Dr. Street was present in the emergency department and did place the Green catheter himself as it was a complex and difficult placement. On reevaluation, the patient had complete resolution of his pain and was stable for discharge home to follow-up with his specialist urologist during the week. The patient was agreeable to this and all his questions were answered. The patient was discharged home in stable condition. Undiagnosed new problem with uncertain prognosis? @ -No Drug Therapy requiring intensive monitoring for toxicity (Heparin, Nitro, Insulin, Cardizem)? @ -No Were any procedures done? @ -No Diagnosis/symptom? @ -Acute urinary retention, Green catheter placement Acute, or Chronic, or Acute on Chronic? @ -Acute Uncomplicated (without systemic symptoms) or Complicated (systemic symptoms)? @ -Uncomplicated Side effects of treatment? @ -No Exacerbation, Progression, or Severe Exacerbation? @ -No Poses a threat to life or bodily function? How? (Chest pain, [place], [place], pneumonia, PE, COPD, DKA, ARF, appy, cholecystitis, CVA, Diverticulitis, Homicidal, Suicidal, threat to staff... and all critical care pts) @ -No Disposition Clinical Impression: Acute urinary retention Disposition: HOME SELF-CARE Condition: Stable Instructions (If sedation given, give patient instructions): Urinary Retention in Men (ED), Green Catheter Placement and Care (ED) Additional Instructions: Please follow up with the comprehensive specialist urologist on Thursday as previously scheduled. Is patient prescribed a controlled substance at d/c from ED?: No Referrals: Farnk Golden MD [Primary Care Provider] - 1-2 days Time of Disposition: 21:15
[2023-02-22 21:43] VITALS: BP 158/80; PULSE 67
--- NOTE | 2023-02-22 21:48 | P.GSCN ---
History of Present Illness Consult date: 02/22/23 History of present illness: 57 yo male with history of prostate cancer comes to the er unable to void. The patient had a robotic assisted radical prostatectomy 03/2022 at [facility] He had a high grade[g9] t3b but his psa went to non detectable and has stayed there. He developed an anastamotic contracture treated with dilation and then about 2 mos ago with a limited incision. The symptoms of obstruction returned quickly. I have arranged for him to see a reconstructive urologist at [facility] next week but he went into retention today. Unfortunately he also has several pad per day [place]. He last voided this am. He cannot void now. He is uncomfortable. His bladder scan was > 600ml. Review of Systems All systems: negative - Constitutional Denies fever, Denies weight loss - EENT Eyes: denies blurred vision Ears, nose, mouth and throat: Denies dysphagia - Cardiovascular Denies chest pain, Denies shortness of breath - Respiratory Denies cough, Denies 7 - Gastrointestinal Reports as per HPI - Genitourinary Denies dysuria, Denies hematuria - Integumentary Denies rash, Denies unusual bruising - Neurological Denies headaches, Denies syncope - Hematologic/Lymphatic Denies easy bleeding, Denies easy bruising Past Medical History Past Medical History: Cancer, Skin Disorder Additional Past Medical History / Comment(s): hx. slow heart rate, usually in 40's per pt., walks 5-8 miles daily, hx. melanoma 2012 on arm, PSORIATIC ARTHRITIS, & psoriasis, new dx. prostate cancer History of Any Multi-Drug Resistant Organisms: None Reported Past Surgical History: Orthopedic Surgery, Prostate Surgery Additional Past Surgical History / Comment(s): RIGHT LEG FOR RUPTURED TENDON IN QUAD, BIOPSY OF RIGHT RING FINGER KNUCKLE, SKIN LESION REMOVED WITH LYMPH NODE BIOPSY left forearm Past Anesthesia/Blood Transfusion Reactions: No Reported Reaction Past Psychological History: No Psychological Hx Reported Smoking Status: Never smoker Past Alcohol Use History: Rare Past Drug Use History: None Reported - Past Family History Mother Family Medical History: Cancer Medications and Allergies Home Medications Medication Instructions Recorded Confirmed Type Ustekinumab [Stelara] 90 mg INJ DIRECTED 05/20/21 03/26/22 History Ciprofloxacin HCl [Cipro] 250 mg PO Q12HR #6 tablet 03/27/22 Rx Ketorolac [Toradol] 10 mg PO Q6HR PRN #12 tab 03/27/22 Rx Allergies Allergy/AdvReac Type Severity Reaction Status Date / Time erythromycin base Allergy Rash/Hives Verified 02/22/23 20:06 Surgical - Exam Vital Signs Temp Pulse Resp BP Pulse Ox 98.5 F 66 20 183/8 95 02/22/23 20:03 02/22/23 20:03 02/22/23 20:03 02/22/23 20:03 02/22/23 20:03 - General well developed, well nourished, moderate distress - Eyes normal ocular movement, no icteric - ENT no hearing loss, no congestion - Neck no masses, trachea midline - Respiratory normal respiratory effort, clear to auscultation - Abdomen Abdomen: soft, no guarding, no rigid, no rebound, distended - Integumentary no rash, no abnormal pigmentation - Neurologic no disoriented, no combative - Psychiatric oriented to time, oriented to person, oriented to place, speech is normal, memory intact Assessment and Plan Assessment: Impression: Urine retention secondary to anastamotic contracture. Prostate cancer, psoriatic arthritis. Plan: I will attempt to place a catheter
--- NOTE | 2023-02-22 21:55 | P.PCN ---
Date of Procedure: 02/22/23 Preoperative Diagnosis: urine retention secondary to anastamotic contracture post ralp Postoperative Diagnosis: same Procedure(s) Performed: dilation of contracture with f/f 8-16 fr. Placement of a 12fr coude tip catheter. Anesthesia: none Surgeon: Te Street Estimated Blood Loss (ml): 0 Pathology: none sent Condition: stable Description of Procedure: The patient is prepped and draped sterilely. I first attempt to pass a 12 fr rosenberg catheter but meet resistance as expected at the vesicourethral a nastamosis. I then pass a 4 fr spiral filiform into the bladder. I then dilate the contracture with followers 8-16fr. I then pass a 12 fr coude tip cath into the bladder with > 700 ml of clear urine return The patient will be discharged home with the rosenberg . He has an appointment with the urologist thursday and will keep the catheter at least until then
== END 2023-02-22 21:43 | disposition home or self-care (01) ==
LOC: EC 19:50
DX: R33.9 Retention of urine, unspecified (principal); Z88.1 Allergy status to other antibiotic agents
CPT/HCPCS: 51702; 51798; 99283

== ENCOUNTER → 2023-05-21 | Outpatient (CLI) | payer BC ==
[2023-05-22 03:01] LABS: Basophils # (A) 0.03 X 10*3/uL (0.00-0.10); Basophils % (A) 0.5 %; Eosinophils # (A) 0.13 X 10*3/uL (0.04-0.35); Eosinophils % (A) 2.3 %; HCT 46.5 % (39.6-50.0); HGB 15.5 g/dL (13.0-17.0); Lymphocytes # (A) 1.84 X 10*3/uL (0.90-5.00); Lymphocytes % (A) 32.7 %; MCH 30.2 pg (27.0-32.0); MCHC 33.3 g/dL (32.0-37.0); MCV 90.6 FL (80.0-97.0); Mean Platelet Volume 13.4 FL (9.5-12.2); Monocytes # (A) 0.38 X 10*3/uL (0.20-1.00); Monocytes % (A) 6.7 %; NRBC Per 100 WBC 0 X 10*3/uL (0.00-0.01); Neutrophils # (A) 3.24 X 10*3/uL (1.80-7.70); Neutrophils % (A) 57.6 %; Platelet Count 123 X 10*3/uL (140-440); RBC 5.13 X 10*6/uL (4.40-5.60); RDW 12.8 % (11.5-14.5); WBC 5.63 X 10*3/uL (4.50-10.00)
[2023-05-22 04:47] LABS: ALT 38 U/L (10-49); AST 26 U/L (14-35)
[2023-05-22 04:53] LABS: Prostate Specific Antigen <0.01 ng/mL (0.000-3.500)
== END | disposition home or self-care (01) ==
LOC: LABWHC1 15:15
PROVIDERS: ATTEND Dermatology Procedural Dermatology
DX: C61 Malignant neoplasm of prostate (principal); L40.0 Psoriasis vulgaris; Z79.899 Other long term (current) drug therapy
CPT/HCPCS: 36415; 82565; 84153; 84450; 84460; 85025; 86480

== ENCOUNTER → 2024-03-21 | Outpatient (CLI) | payer BC | END | disposition home or self-care (01) | LOC: LABWHC1 08:18 | PROVIDERS: ATTEND Urology | DX: C61 Malignant neoplasm of prostate (principal) | CPT/HCPCS: 36415; 84153 ==

== ENCOUNTER → 2024-05-31 | Outpatient (CLI) | payer BC | END | disposition home or self-care (01) | LOC: LABWHC1 14:47 | PROVIDERS: ATTEND Dermatology MOHS-Micrographic Surgery | DX: L40.0 Psoriasis vulgaris (principal) | CPT/HCPCS: 36415; 86480 ==